=== PATIENT | female | born 1950 | race Caucasian/White ===

== ENCOUNTER 2016-10-04 14:10 | Emergency (ER) | payer MEDICAID ==
[~2016-10-04] VITALS: Ht 152.4 cm; Wt 58.7 kg
[2016-10-04 16:42] LABS: microscopic required? NO
[2016-10-04 16:44] LABS: BASOPHIL % 0.3 % (0-2)
[2016-10-04 16:47] LABS: PLATELET COUNT 103 x10^3mcL (130-400); RED CELL DISTRIBUTION WIDTH 16.8 % (11.5-14.5)
[2016-10-04 16:48] LABS: urine erythrocyte NEGATIVE (NEGATIVE)
[2016-10-04 16:55] LABS: AMPHETAMINE QUAL UR NONE DETECTED (NEG <=1000)
[2016-10-04 17:02] LABS: ALBUMIN 3.5 g/dL (3.4-5.0); ALKALINE PHOSPHATASE 152 U/L (46-116); ALT/SGPT 45 U/L (14-59); AST/SGOT 38 U/L (15-37); BILIRUBIN TOTAL 0.9 mg/dL (0.20-1.00); CALCIUM 9.7 mg/dL (8.5-10.1); CARBON DIOXIDE 27.7 mmol/L (21-32); CHLORIDE SERUM 100 mmol/L (98-107); CREATININE SERUM 0.7 mg/dL (0.6-1.0); GFR1 > 60 mL/min; LIPASE 271 IU/L (73-393); POTASSIUM SERUM 3.7 mmol/L (3.5-5.1); SODIUM SERUM 140 mmol/L (136-145); T4(THYROXINE) 9.1 ug/dL (4.7-13.3)
[2016-10-04 17:04] LABS: AMYLASE 127 U/L (25-115); CHOLESTEROL 214 mg/dL (<200); HDL CHOLESTEROL 66 mg/dL (40-60); TOTAL PROTEIN, SERUM 8.8 g/dL (6.4-8.2)
[2016-10-04 17:05] LABS: GLUCOSE SERUM 55 mg/dL (74-106)
[2016-10-04 18:02] VITALS: BP 142/70
== END 2016-10-04 18:30 | disposition home or self-care (01) ==
LOC: ED 14:10
PROVIDERS: Emergency Medicine
DX: K72.90 Hepatic failure, unspecified without coma (principal); R11.2 Nausea with vomiting, unspecified; I45.2 Bifascicular block; E11.9 Type 2 diabetes mellitus without complications; I10 Essential (primary) hypertension; E78.00 Pure hypercholesterolemia, unspecified; K74.60 Unspecified cirrhosis of liver; Z88.5 Allergy status to narcotic agent; Z90.710 Acquired absence of both cervix and uterus; Z79.899 Other long term (current) drug therapy
CPT/HCPCS: 83880; J7030

== ENCOUNTER 2016-11-20 09:48 | Emergency (ER) | payer MEDICAID ==
[2016-11-20 11:31] VITALS: BP 153/88
== END 2016-11-20 11:31 | disposition home or self-care (01) ==
LOC: ED 09:48
DX: S83.92XA Sprain of unspecified site of left knee, initial encounter (principal); S93.402A Sprain of unspecified ligament of left ankle, initial encounter; S70.12XA Contusion of left thigh, initial encounter; E78.00 Pure hypercholesterolemia, unspecified; I10 Essential (primary) hypertension; E11.9 Type 2 diabetes mellitus without complications; Z88.5 Allergy status to narcotic agent; W17.89XA Other fall from one level to another, initial encounter; Y93.89 Activity, other specified; Y99.8 Other external cause status; Y92.89 Other specified places as the place of occurrence of the external cause
CPT/HCPCS: J1885

== ENCOUNTER 2017-08-13 08:34 | Emergency (ER) | payer MEDICAID ==
[~2017-08-13] VITALS: Ht 157.5 cm; Wt 63.0 kg
[2017-08-13 08:43] VITALS: Ht 157.5 cm; Wt 63.0 kg
[2017-08-13 11:47] LABS: CALCIUM 8.9 mg/dL (8.5-10.1); CHLORIDE SERUM 103 mmol/L (98-107); CREATININE SERUM 0.6 mg/dL (0.6-1.0); GFR1 > 60 mL/min; GLUCOSE SERUM 268 mg/dL (74-106); POTASSIUM SERUM 4.5 mmol/L (3.5-5.1); SODIUM SERUM 135 mmol/L (136-145)
[2017-08-13 11:51] LABS: ALKALINE PHOSPHATASE 87 U/L (46-116); ALT/SGPT 28 U/L (14-59); AST/SGOT 20 U/L (15-37); BILIRUBIN TOTAL 0.4 mg/dL (0.20-1.00); TOTAL PROTEIN, SERUM 7.2 g/dL (6.4-8.2)
[2017-08-13 12:05] LABS: BASOPHIL % 0.4 % (0-2)
[2017-08-13 12:06] LABS: PLATELET COUNT 72 x10^3mcL (130-400); RED CELL DISTRIBUTION WIDTH 18.3 % (11.5-14.5)
[2017-08-13 12:18] LABS: CK-MB < 0.5 ng/mL (0-3.6); CREATINE KINASE 37 U/L (26-192)
[2017-08-13 13:11] VITALS: BP 112/54
== END 2017-08-13 13:11 | disposition home or self-care (01) ==
LOC: ED 08:34
PROVIDERS: Emergency Medicine
DX: M54.31 Sciatica, right side (principal); I10 Essential (primary) hypertension; E11.9 Type 2 diabetes mellitus without complications; E78.00 Pure hypercholesterolemia, unspecified; R42 Dizziness and giddiness; Z88.5 Allergy status to narcotic agent
CPT/HCPCS: G0480; J1885; Q0092

== ENCOUNTER 2017-08-21 09:01 | Emergency (ER) | payer MEDICAID ==
[~2017-08-21] VITALS: Ht 152.4 cm; Wt 63.0 kg
[2017-08-21 09:04] VITALS: Ht 152.4 cm; Wt 63.0 kg
[2017-08-21 09:44] LABS: microscopic required? NO
[2017-08-21 10:23] LABS: UA SPECIFIC GRAVITY 1.025 (1.005-1.035); urine erythrocyte NEGATIVE (NEGATIVE)
[2017-08-21 11:19] LABS: BASOPHIL % 0.4 % (0-2)
[2017-08-21 11:20] LABS: PLATELET COUNT 95 x10^3mcL (130-400); RED CELL DISTRIBUTION WIDTH 19.2 % (11.5-14.5)
[2017-08-21 11:29] LABS: CALCIUM 7.9 mg/dL (8.5-10.1); CHLORIDE SERUM 102 mmol/L (98-107); CREATININE SERUM 0.5 mg/dL (0.6-1.0); GFR1 > 60 mL/min; GLUCOSE SERUM 257 mg/dL (74-106); SODIUM SERUM 136 mmol/L (136-145)
[2017-08-21 11:37] LABS: ALKALINE PHOSPHATASE 100 U/L (46-116); ALT/SGPT 27 U/L (14-59); AST/SGOT 24 U/L (15-37); BILIRUBIN TOTAL 0.85 mg/dL (0.20-1.00); LIPASE 209 IU/L (73-393); TOTAL PROTEIN, SERUM 6.3 g/dL (6.4-8.2)
[2017-08-21 11:45] LABS: ALBUMIN 2.6 g/dL (3.4-5.0)
[2017-08-21 12:38] VITALS: BP 118/68
== END 2017-08-21 12:38 | disposition home or self-care (01) ==
LOC: ED 09:01
PROVIDERS: Emergency Medicine
DX: R10.30 Lower abdominal pain, unspecified (principal); I10 Essential (primary) hypertension; E11.9 Type 2 diabetes mellitus without complications; E78.00 Pure hypercholesterolemia, unspecified; Z88.5 Allergy status to narcotic agent
CPT/HCPCS: 83880; J2405; J3010; J7030; Q0092

== ENCOUNTER 2017-10-20 10:03 | Emergency (ER) | payer MEDICAID ==
[~2017-10-20] VITALS: Ht 154.9 cm; Wt 61.2 kg
[2017-10-20 10:06] VITALS: BP 98/56; Ht 154.9 cm; Wt 61.2 kg
== END 2017-10-20 10:44 | disposition home or self-care (01) ==
LOC: ED 10:03
DX: B02.29 Other postherpetic nervous system involvement (principal); E11.9 Type 2 diabetes mellitus without complications; I10 Essential (primary) hypertension; E78.00 Pure hypercholesterolemia, unspecified; Z90.710 Acquired absence of both cervix and uterus; Z88.5 Allergy status to narcotic agent

== ENCOUNTER 2018-02-04 01:20 | Emergency (ER) | payer MEDICAID ==
[~2018-02-04] VITALS: Ht 157.5 cm; Wt 64.0 kg
[2018-02-04 01:24] VITALS: Ht 157.5 cm; Wt 64.0 kg
[2018-02-04 02:59] VITALS: BP 108/53
== END 2018-02-04 02:59 | disposition home or self-care (01) ==
LOC: ED 01:20
DX: S43.401A Unspecified sprain of right shoulder joint, initial encounter (principal); S59.901A Unspecified injury of right elbow, initial encounter; M79.605 Pain in left leg; I10 Essential (primary) hypertension; E11.9 Type 2 diabetes mellitus without complications; E78.00 Pure hypercholesterolemia, unspecified; Z88.5 Allergy status to narcotic agent; W17.89XA Other fall from one level to another, initial encounter; Y93.89 Activity, other specified; Y92.89 Other specified places as the place of occurrence of the external cause; Y99.8 Other external cause status
CPT/HCPCS: Q0092

== ENCOUNTER 2018-04-17 12:19 | Emergency (ER) | payer MEDICAID ==
[~2018-04-17] VITALS: Ht 152.4 cm; Wt 59.0 kg
[2018-04-17 12:58] VITALS: Ht 152.4 cm; Wt 59.0 kg
[2018-04-17 15:25] VITALS: BP 128/64
== END 2018-04-17 15:25 | disposition home or self-care (01) ==
LOC: ED 12:19
DX: J06.9 Acute upper respiratory infection, unspecified (principal); I10 Essential (primary) hypertension; E11.9 Type 2 diabetes mellitus without complications; E78.00 Pure hypercholesterolemia, unspecified; Z88.5 Allergy status to narcotic agent

== ENCOUNTER 2019-01-29 12:55 | Inpatient (IN) | payer MEDICAID ==
[~2019-01-29] VITALS: Ht 152.4 cm; Wt 59.9 kg
[2019-01-29 13:09] VITALS: Ht 152.4 cm; Wt 59.9 kg
[2019-01-29 14:10] LABS: BASOPHIL % 0.6 % (0-2)
[2019-01-29 14:15] LABS: PLATELET COUNT 75 x10^3mcL (130-400); RED CELL DISTRIBUTION WIDTH 14.8 % (11.5-14.5)
[2019-01-29 14:26] LABS: microscopic required? NO
[2019-01-29 14:40] LABS: UA SPECIFIC GRAVITY <=1.005 (1.005-1.035); urine erythrocyte NEGATIVE (NEGATIVE)
[2019-01-29 14:55] LABS: AMPHETAMINE QUAL UR NONE DETECTED (See below)
[2019-01-29 15:37] LABS: ALKALINE PHOSPHATASE 127 U/L (46-116); ALT/SGPT 112 U/L (14-59); AST/SGOT 67 U/L (15-37); BILIRUBIN TOTAL 1.48 mg/dL (0.20-1.00); CALCIUM 8.9 mg/dL (8.5-10.1); CARBON DIOXIDE 22.8 mmol/L (21-32); CHLORIDE SERUM 91 mmol/L (98-107); CREATININE SERUM 0.6 mg/dL (0.6-1.0); GFR1 > 60 mL/min; LIPASE 478 IU/L (73-393); MAGNESIUM 1.9 mg/dL (1.8-2.4); POTASSIUM SERUM 5.3 mmol/L (3.5-5.1); SODIUM SERUM 125 mmol/L (136-145); T4(THYROXINE) 5.6 ug/dL (4.7-13.3); TOTAL PROTEIN, SERUM 6.7 g/dL (6.4-8.2)
[2019-01-29 15:38] LABS: ALBUMIN 2.5 g/dL (3.4-5.0)
[2019-01-29 15:39] LABS: CHOLESTEROL 319 mg/dL (<200); HDL CHOLESTEROL 87 mg/dL (40-60)
[2019-01-29 15:41] LABS: GLUCOSE SERUM 490 mg/dL (74-106)
[2019-01-29 18:30] VITALS: BP 116/50
[2019-01-29 19:11] LABS: CARBON DIOXIDE 28.6 mmol/L (21-32); CHLORIDE SERUM 101 mmol/L (98-107); CREATININE SERUM 0.5 mg/dL (0.6-1.0); GFR1 > 60 mL/min; GLUCOSE SERUM 251 mg/dL (74-106); POTASSIUM SERUM 4.3 mmol/L (3.5-5.1); SODIUM SERUM 133 mmol/L (136-145)
[2019-01-29 21:45] VITALS: BP 103/48
[2019-01-30 04:45] VITALS: BP 99/40
[2019-01-30 06:53] LABS: CALCIUM 7.6 mg/dL (8.5-10.1); CHLORIDE SERUM 103 mmol/L (98-107); CREATININE SERUM 0.5 mg/dL (0.6-1.0); GFR1 > 60 mL/min; GLUCOSE SERUM 193 mg/dL (74-106); MAGNESIUM 1.7 mg/dL (1.8-2.4); PHOSPHOROUS 3.2 mg/dL (2.5-4.9); POTASSIUM SERUM 4.5 mmol/L (3.5-5.1); SODIUM SERUM 135 mmol/L (136-145)
[2019-01-30 07:18] LABS: BASOPHIL % 0.1 % (0-2)
[2019-01-30 08:06] LABS: RED CELL DISTRIBUTION WIDTH 14.8 % (11.5-14.5)
[2019-01-30 08:10] LABS: PLATELET COUNT 48 x10^3mcL (130-400)
[2019-01-30 09:06] VITALS: BP 112/48
[2019-01-30 14:08] VITALS: BP 114/53
[2019-01-30 17:04] VITALS: BP 124/60
[2019-01-30 20:25] VITALS: BP 129/64
[2019-01-31 05:18] VITALS: BP 145/67
[2019-01-31 06:19] LABS: RED CELL DISTRIBUTION WIDTH 14.5 % (11.5-14.5)
[2019-01-31 06:39] LABS: CALCIUM 7.9 mg/dL (8.5-10.1); CHLORIDE SERUM 104 mmol/L (98-107); CREATININE SERUM 0.4 mg/dL (0.6-1.0); GFR1 > 60 mL/min; GLUCOSE SERUM 160 mg/dL (74-106); MAGNESIUM 1.8 mg/dL (1.8-2.4); POTASSIUM SERUM 4.6 mmol/L (3.5-5.1); SODIUM SERUM 136 mmol/L (136-145)
[2019-01-31 07:39] LABS: BASOPHIL % 0 % (0-2)
[2019-01-31 08:27] VITALS: BP 126/59
[2019-01-31 08:36] LABS: PLATELET COUNT 49 x10^3mcL (130-400)
[2019-01-31 11:53] VITALS: BP 128/57
[2019-01-31 16:48] VITALS: BP 137/63
[2019-01-31 19:30] VITALS: BP 150/64
[2019-02-01 04:13] VITALS: BP 145/76
[2019-02-01 06:15] LABS: BASOPHIL % 0.1 % (0-2)
[2019-02-01 06:30] LABS: CALCIUM 7.9 mg/dL (8.5-10.1); CARBON DIOXIDE 21.5 mmol/L (21-32); CHLORIDE SERUM 105 mmol/L (98-107); CREATININE SERUM 0.4 mg/dL (0.6-1.0); GFR1 > 60 mL/min; GLUCOSE SERUM 305 mg/dL (74-106); SODIUM SERUM 134 mmol/L (136-145)
[2019-02-01 08:10] LABS: RED CELL DISTRIBUTION WIDTH 14.9 % (11.5-14.5)
[2019-02-01 08:46] LABS: PLATELET COUNT 42 x10^3mcL (130-400)
[2019-02-01 08:51] VITALS: BP 143/72
[2019-02-01] MEDS ORDERED: LIPITOR40 MG PO (12:15)
[2019-02-01] MEDS ORDERED: GLU850 PO (12:15)
[2019-02-01] MEDS ORDERED: GLUCOCARD EXPR1 EAC2 MC (12:17)
[2019-02-01 13:24] VITALS: BP 124/68
[2019-02-01 14:53] VITALS: BP 124/68
[2019-02-01 17:23] VITALS: BP 112/56
[2019-02-01 20:25] VITALS: BP 133/69
[2019-02-02 05:39] VITALS: BP 140/80
[2019-02-02 08:39] VITALS: BP 134/72
[2019-02-02 11:12] VITALS: BP 124/68
[2019-02-02] MEDS ORDERED: BASAGLAR K100 UNIT/1 SQ (13:38)
== END 2019-02-02 13:40 | disposition home or self-care (01) | DRG 420 ==
LOC: ED 12:55 → DU 16:17 → MU 02-01 14:47
PROVIDERS: Emergency Medicine; ADMIT Family Medicine
DX: E11.65 Type 2 diabetes mellitus with hyperglycemia (principal); E43 Unspecified severe protein-calorie malnutrition; E87.5 Hyperkalemia; D69.59 Other secondary thrombocytopenia; E86.0 Dehydration; K74.60 Unspecified cirrhosis of liver; K75.81 Nonalcoholic steatohepatitis (NASH); B35.4 Tinea corporis; E87.1 Hypo-osmolality and hyponatremia; I10 Essential (primary) hypertension; E78.00 Pure hypercholesterolemia, unspecified; E78.5 Hyperlipidemia, unspecified; Z88.5 Allergy status to narcotic agent; Z79.84 Long term (current) use of oral hypoglycemic drugs; Z68.25 Body mass index [BMI] 25.0-25.9, adult
CPT/HCPCS: 36600; 82962; 97116-GP; 97530-GP; G0378; G0480; J1815; J7030; J7042; Q0092

== ENCOUNTER 2019-02-03 19:44 | Emergency (ER) | payer MEDICAID ==
[~2019-02-03] VITALS: Ht 152.4 cm; Wt 59.4 kg
[~2019-02-03 19:44] MED LIST: BASAGLAR K100 UNIT/1 SQ; GLU850 PO; GLUCOCARD EXPR1 EAC2 MC; LIPITOR40 MG PO
[2019-02-03 19:50] VITALS: Ht 152.4 cm; Wt 59.4 kg
[2019-02-03 21:39] LABS: BASOPHIL % 0.3 % (0-2)
[2019-02-03 21:43] LABS: CARBON DIOXIDE 25.3 mmol/L (21-32); CHLORIDE SERUM 103 mmol/L (98-107); CREATININE SERUM 0.9 mg/dL (0.6-1.0); GFR1 > 60 mL/min; GLUCOSE SERUM 279 mg/dL (74-106); PLATELET COUNT 61 x10^3mcL (130-400); POTASSIUM SERUM 4.6 mmol/L (3.5-5.1); RED CELL DISTRIBUTION WIDTH 15.6 % (11.5-14.5); SODIUM SERUM 134 mmol/L (136-145)
[2019-02-03 21:47] LABS: ALKALINE PHOSPHATASE 126 U/L (46-116); ALT/SGPT 149 U/L (14-59); AST/SGOT 90 U/L (15-37); BILIRUBIN TOTAL 1.2 mg/dL (0.20-1.00); LIPASE 329 IU/L (73-393)
[2019-02-03 21:49] LABS: ALBUMIN 2.2 g/dL (3.4-5.0); TOTAL PROTEIN, SERUM 6.1 g/dL (6.4-8.2)
[2019-02-03 21:55] LABS: UA SPECIFIC GRAVITY 1.015 (1.005-1.035); microscopic required? YES; urine erythrocyte NEGATIVE (NEGATIVE)
[2019-02-04 00:02] VITALS: BP 113/57
== END 2019-02-04 00:02 | disposition home or self-care (01) ==
LOC: ED 19:44
PROVIDERS: Emergency Medicine
DX: K70.31 Alcoholic cirrhosis of liver with ascites (principal); D69.6 Thrombocytopenia, unspecified; E11.9 Type 2 diabetes mellitus without complications; I10 Essential (primary) hypertension; E78.00 Pure hypercholesterolemia, unspecified; Z90.710 Acquired absence of both cervix and uterus; Z88.5 Allergy status to narcotic agent
CPT/HCPCS: 82962; J2270; J2405; Q0092

== ENCOUNTER 2019-02-04 14:10 | Emergency (ER) | payer MEDICAID ==
[~2019-02-04] VITALS: Ht 152.4 cm; Wt 59.0 kg
[2019-02-04 14:15] VITALS: Ht 152.4 cm; Wt 59.0 kg
[2019-02-04 16:19] VITALS: BP 122/56
== END 2019-02-04 16:19 | disposition home or self-care (01) ==
LOC: ED 14:10
DX: S40.021A Contusion of right upper arm, initial encounter (principal); M25.551 Pain in right hip; M25.552 Pain in left hip; I10 Essential (primary) hypertension; E11.9 Type 2 diabetes mellitus without complications; E78.5 Hyperlipidemia, unspecified; Z88.5 Allergy status to narcotic agent; W07.XXXA Fall from chair, initial encounter; Y93.89 Activity, other specified; Y92.89 Other specified places as the place of occurrence of the external cause; Y99.8 Other external cause status

== ENCOUNTER 2019-04-25 17:36 | Inpatient (IN) | payer MEDICAID ==
[~2019-04-25] VITALS: Ht 142.2 cm; Wt 60.1 kg
--- NOTE | 2019-04-25 18:41 | NUR ---
EKG IN PROG
--- NOTE | 2019-04-25 19:46 | NUR ---
PT PRESENTS TO ED WITH DAUGHTER FOR C/O GENERALIZED WEAKNESS, DECREASED APPETITE AND LETHARGY. PER DAUGHTER THE PT HAS BEEN INCREASINGLY MORE TIRED THE LAST 3 DAYS WITH TODAY BEING THE WORST. DAUGHTER ALSO STATES THAT PT HAS NOT BEEN EATING MUCH WELL HAS BEEN BECOMING TOO WEAK TO WALK. UPON ARRIVAL PT APPEARS LETHARGIC HOWEVER IS AROUSABLE TO VERBAL STIMULI. PT ALSO APPEARS WEAK IN ALL EXTREMITIES WITH DRYNESS NOTED TO LIPS. PT CONNECTED TO ALL CM AND PULSE OX MONITORS. DAUGHTER AT BEDSIDE. PT AWARE OF NAME AND LOCATION HOWEVER NOT SIUTATION OR YEAR. AWAITING MSE AT THIS TIME. BED IN LOWEST POSITION. CALL LIGHT WITHIN REACH. NAD AT THIS TIME
[2019-04-25 20:03] LABS: BASOPHIL % 0.2 % (0-2); PLATELET COUNT 85 x10^3mcL (130-400)
[2019-04-25 20:13] LABS: CALCIUM 9.7 mg/dL (8.5-10.1); CARBON DIOXIDE 25.1 mmol/L (21-32); CHLORIDE SERUM 105 mmol/L (98-107); CREATININE SERUM 0.5 mg/dL (0.6-1.0); GFR1 > 60 mL/min; GLUCOSE SERUM 124 mg/dL (74-106); SODIUM SERUM 139 mmol/L (136-145)
[2019-04-25 20:20] LABS: ALBUMIN 2.8 g/dL (3.4-5.0); ALKALINE PHOSPHATASE 159 U/L (46-116); ALT/SGPT 79 U/L (14-59); AST/SGOT 57 U/L (15-37); BILIRUBIN TOTAL 1.3 mg/dL (0.20-1.00); MAGNESIUM 2.2 mg/dL (1.8-2.4)
--- NOTE | 2019-04-25 20:25 | NUR ---
PT AWARE WE NEED URINE SAMPLE AT THIS TIME. PT STATES SHE IS UNABLE TO PROVIDE URINE AT THIS TIME, HOWEVER WILL LET US KNOW WHEN SHE NEEDS TO GO. LITER STARTED SO WILL REASSESS SHORTLY
--- NOTE | 2019-04-25 22:40 | NUR ---
REPORT GIVEN TO YISSEL DOS SANTOS. ALL QUESTIONS AND CONCERNS ADDRESSED AT THIS TIME
--- NOTE | 2019-04-25 22:45 | NUR ---
RECEIVED PT FROM ED [facility] [employer], CAME IN DUE TO CONFUSION. PT IS ABLE TO STATE NAME AND BIRTHDATE, CONFUSED. ABLE TO FOLLOW COMMANDS. NO SOB NOTED, LUNG SOUNDS CTA. DENIES CHEST PAIN/PRESSURE, SR W/ BBB AND MILD ST ELEVATION. DENIES ABDOMINAL DISCOMFORT. HAD BM YESTERDAY, HARD. VOIDS. IV SITE PATENT AND INTACT. SIDE RAILS UPX2. CALL LIGHT ON REACH. PRIMARY NURSE YISSEL AT BEDSIDE FOR CONTINUITY OF CARE
[2019-04-25 22:59] VITALS: BP 145/68
[2019-04-25 23:04] VITALS: Ht 142.2 cm; Wt 60.1 kg
[2019-04-26 00:29] LABS: PHOSPHOROUS 4.7 mg/dL (2.5-4.9)
[2019-04-26 00:32] LABS: CHOLESTEROL/HDL RATIO 4.6
[2019-04-26 05:54] VITALS: BP 132/59
--- NOTE | 2019-04-26 06:13 | NUR ---
PT BLOOD SUGAR THIS AM 51, RE-CHECKED BLOOD SUGAR RESULT OF 51. PT ASYMPTOMATIC. DR CUELLAR MADE AWARE. ORDERED DEXTROSE 50% IVP. WILL RECHECK BLOOD SUGAR.
--- NOTE | 2019-04-26 06:28 | NUR ---
PT SLEPT ON AND OFF THROUGHOUT THE NIGHT. NO ACUTE DISTRESS NOTED. BREATHING EVEN AND UNLABORED ON RA. NO SOB NOTED. IV PATENT, INFUSING WELL. GENRALIZED WEAKNESS. MEDICATED PER EMAR. CALL BUTTON WIHTIN REACH. SAFETY PRECAUTIONS IN PLACE. WILL CONTINUE TO MONITOR AND ENDORSE CARE TO DAY SHIFT RN.
[2019-04-26 06:50] LABS: BASOPHIL % 0.3 % (0-2)
[2019-04-26 07:04] LABS: PLATELET COUNT 73 x10^3mcL (130-400)
--- NOTE | 2019-04-26 07:12 | NUR ---
POWER AND RECOVERY SHIFT ENGINEER AT BEDSIDE TO TAKE PT TO CT OF HEAD.
[2019-04-26 07:14] LABS: FREE T4 0.94 ng/dL (0.76-1.46); FREE THYROXINE INDEX 2.5 ug/dL (1.4-4.5); T4(THYROXINE) 6.8 ug/dL (4.7-13.3)
--- NOTE | 2019-04-26 07:41 | NUR ---
PT BACK FROM CT. NO ACUTE DISTRESS NOTED. ENDORSED CARE TO DAY SHIFT RN, ALL QUESTIONS ADDRESSED.
--- NOTE | 2019-04-26 07:45 | NUR ---
RECEIVED PT FROM DATA NETWORK ARCHITECT RN. PT BACK FROM CT. A/OX4. SPEECH CLEAR AND APPROPRIATE. ABLE TO FOLLOW COMMANDS. MED SURG. DENIES CHEST PAIN/PRESSURE. PT DENIES ANY OTHER PAIN AT THIS TIME. RESPIRATIONS EQUAL AND UNLABORED ON RA. DENIES SOB. PT DENIES ANY OTHER PAIN AT THIS TIME. PT STATES "I FEEL BETTER TODAY" IV TO RFA FLUSHED WELL, NO REDNESS OR SWELLING NOTED. WILL CONTINUE TO MONITOR. CALL LIGHT IN REACH. BED IN LOWEST POSITION.
[2019-04-26 08:20] VITALS: BP 127/60
[2019-04-26 08:21] LABS: CALCIUM 8.9 mg/dL (8.5-10.1); CARBON DIOXIDE 20.2 mmol/L (21-32); CHLORIDE SERUM 107 mmol/L (98-107); CREATININE SERUM 0.6 mg/dL (0.6-1.0); GFR1 > 60 mL/min; GLUCOSE SERUM 259 mg/dL (74-106); POTASSIUM SERUM 3.9 mmol/L (3.5-5.1); SODIUM SERUM 137 mmol/L (136-145)
[2019-04-26 08:44] LABS: T3 TOTAL 0.82 ng/mL
[2019-04-26] MEDS ORDERED: LACTULOSE10 GM/152 PO (09:24)
[2019-04-26] MEDS ORDERED: REMERON30 MG PO (09:25)
--- NOTE | 2019-04-26 09:50 | NUR ---
PT SITTING UP IN BED. PT C/O BOND 11/27. CHECKED BLOOD SUGAR WAS 264. PT ASKING FOR MEDICATION FOR BOND. PAGED DR. MCGOWAN, AWAITING CALL BACK. PT AND DAUGHTER VERBALIZED UNDERSTANDING OF DISCHARGE. IV TO RFA PATENT AND INFUSING. NO REDNESS OR SWELLING NOTED. WILL CONTINUE TO MONITOR. CALL LIGHT IN REACH. BED IN LOWEST POSITION.
--- NOTE | 2019-04-26 10:35 | NUR ---
SPOKE WITH DR. MCGOWAN REGARDING PT C/O BOND, INFORMED DR. MCGOWAN PT HAS NOTHING ELSE FOR PAIN AND TYLENOL IS ON HOLD, PER DR. MCGOWAN WILL ORDER SOMETHING.
[2019-04-26 11:28] VITALS: BP 127/60
--- NOTE | 2019-04-26 12:10 | NUR ---
PT SITTING UP IN BED. NO ACUTE RESP DISTRESS NOTED. PT STATES BOND HAS IMPROVED SINCE RECEIVING TORADOL. PT BLOOD SUGAR CHECKED WAS 245. GIVEN 6 UNITS OF REGULAR INSULIN PER SLIDING SCALE. DAUGHTER AT BEDSIDE. DAUGHTER STATES "I GOT A CALL FROM THE PHARMACY. THE DOCTOR JUST SAID THAT PHYSICAL THERAPIST WAS GOING TO SEE THE PATIENT TODAY TO GET A WHEELCHAIR ORDERED FOR HER." EXPLAINED TO PT ONCE PHYSICAL THERAPIST HAS SEEN PT WILL PLAN FOR DISCHARGE. WILL CONTINUE TO MONITOR. CALL LIGHT IN REACH. BED IN LOWEST POSITION.
[2019-04-26 13:17] VITALS: BP 126/53
--- NOTE | 2019-04-26 13:56 | NUR ---
SPOKE WITH VELIA PHYSICAL THERAPIST, PER VELIA RECOMMENDS SNF. PER VELIA PT IS MAX ASSIST. DR. MCGOWNA MADE AWARE.
--- NOTE | 2019-04-26 15:31 | NUR ---
SPOKE WITH THOMAS SHIP WORKER REGARDING BUILDINGS AND GROUNDS DIRECTOR ORDER FOR HOME HEALTH WITH PHYSICAL THERAPY. PER THOMAS PT INSURANCE WILL BE CONTACTING PT WITH AGENCY FOR HOME HEALTH. PT OKAY FOR DISCHARGE.
--- NOTE | 2019-04-26 15:46 | NUR ---
PT SITTING UP IN BED. NO ACUTE RESP DISTRESS NOTED. PT GIVEN DISCHARGE INSTRUCTIONS. PT ENCOURAGED TO MONITOR FOR ANY WORSENING SIGNS OF SYMPTOMS OF CONFUSION, WEAKNESS, ABDOMINAL PAIN, NAUSEA, VOMITING, OR FEVER. PT VERBALIZED UNDERSTANDING. PT MADE AWARE OF PRESCRIPTIONS FOR LACTULOSE AND REMERON. PT INFORMED TO TAKE LACTULOSE TOMORROW, SINCE TWO DOSES WERE GIVEN TODAY. PT VERBALIZED UNDERSTANDING. PT MADE AWARE OF FOLLOW UP APPOINTMENT WITH DR. PARMAR ON 05/04 AT 8;30 AM. PT ALSO MADE AWARE WILL BE CONTACTED BY INSURANCE WITH INFORMATION ABOUT HOME HEALTH AGENCY. ALL QUESTIONS AND CONCERNS ADDRESSED. NO PROBLEMS ENCOUNTERED. IV TO TO RFA REMOVED CATHETER INTACT. PT TAKEN OFF FLOOR VIA WHEELCHARIR.
== END 2019-04-26 15:48 | disposition home health service (06) | DRG 279 ==
LOC: ED 17:36 → DU 21:58 → MU 21:58 → DU 22:45 → MU 04-26 02:18
PROVIDERS: Emergency Medicine; Family Medicine; ADMIT Internal Medicine
DX: K72.00 Acute and subacute hepatic failure without coma (principal); N17.0 Acute kidney failure with tubular necrosis; E43 Unspecified severe protein-calorie malnutrition; E11.65 Type 2 diabetes mellitus with hyperglycemia; D68.69 Other thrombophilia; E86.0 Dehydration; D75.1 Secondary polycythemia; K74.60 Unspecified cirrhosis of liver; E78.5 Hyperlipidemia, unspecified; Z68.29 Body mass index [BMI] 29.0-29.9, adult; Z79.84 Long term (current) use of oral hypoglycemic drugs
CPT/HCPCS: 82962; 84439; G0378; J1815; J1885; J3490; J7030; Q0092

== ENCOUNTER 2019-11-23 09:06 | Emergency (ER) | payer MEDICAID ==
[~2019-11-23] VITALS: Ht 152.4 cm; Wt 58.5 kg
[~2019-11-23 09:06] MED LIST changes: +LACTULOSE10 GM/152 PO; +REMERON30 MG PO
[2019-11-23 09:14] VITALS: BP 104/50; Ht 152.4 cm; Wt 58.5 kg
== END 2019-11-23 09:36 | disposition home or self-care (01) ==
LOC: ED 09:06
DX: L72.3 Sebaceous cyst (principal); I10 Essential (primary) hypertension; E11.9 Type 2 diabetes mellitus without complications; E78.5 Hyperlipidemia, unspecified; Z88.5 Allergy status to narcotic agent